=== PATIENT | female | born 2005 | race Caucasian/White ===

== ENCOUNTER 2024-02-05 18:11 | Emergency (ER) | payer OTHER, SELFPAY ==
[2024-02-05 18:14] VITALS: BP 110/71
[2024-02-05] MEDS: TYLENOL 650 MG PO (19:07)
[2024-02-05 19:30] LABS: Urine Albumin Negative (Neg - Trace); Urine Bilirubin Negative (Negative); Urine Character Clear (Clear); Urine Color Straw; Urine Glucose Negative (Negative); Urine Ketone 2+ (Negative); Urine Leukocyte Trace (Negative); Urine Nitrite Negative (Negative); Urine Occult Blood Negative (Negative); Urine Specific Gravity 1.005 (<1.030); Urine Urobilinogen Negative (Neg - 1+)
[2024-02-05 19:32] LABS: % Basophils 0.1 % (0-2); % Immature Granulocytes 0.5 % (0-0.5); % Lymphocytes 5.3 % (20.5-51.1); % Monocytes 6.6 % (1.7-9.3); % Neutrophils 87.5 % (42.2-75.2); Absolute Immature Granulocytes 0.1 10^3/uL (0-0.05); Absolute Lymphocytes 0.6 10^3/uL (1.2-3.4); Absolute Monocytes 0.7 10^3/uL (0.1-0.6); Absolute Neutrophils 9.7 10^3/uL (1.4-6.5); Hemoglobin 12.1 g/dL (12.0-16.0); Mean Corp Hgb Conc. 34.6 g/dL (33.0-37.0); Mean Corpuscular Hgb 31.3 pg (27.0-31.0); Mean Corpuscular Volume 90.7 fL (81.0-99.0); Nucleated Red Blood Cells % 0 %; Platelet Count 207 10^3/uL (130-400); Red Blood Cell Count 3.86 10^6/uL (4.20-5.40); Red Cell Dist. Width 11.5 % (11.5-14.5); White Blood Cell Count 11.1 10^3/uL (4.8-10.8)
[2024-02-05 19:37] LABS: HCG, Serum Qualitative Screen Negative
--- NOTE | 2024-02-05 19:38 | ED.GENMED ---
History of Present Illness
General
Chief Complaint: Fever
Source: patient and family (Mother at bedside)
Exam Limitations: none
Time Seen by Provider: 02/05/24 18:50
Nursing documentation reviewed up to this point in time: agreed with
History of Present Illness
History of Present Illness:
19-year-old female states last night she felt hot and there chest felt a little tight, she woke at 6:30 this a.m. with her eyes and head hurting, at 7:15 she took Advil 400 mg, went to school, had drenching sweats, took Advil 400 at 11:30, went
home, napped until 3:30 when she woke with fever of 102, chills, body aches. Saw GULSHAN Swanson at [facility]. Had a dip U/A that was questionable for infection so sent here for evaluation.
At this time she states her headache is 2/10.
She has no known sick contacts, no recent travel.
Denies cough or chest pain or shortness of breath.
Denies N/V or abdominal pain. Denies flank pain
6 days ago she had frequency and burning of urination, took Azo, will of oregano and Cran-actin and her symptoms resolved after 4 days. Spring well 2 days ago. Then got sick again yesterday.
Past History
Past History
ED Past Medical History: None
ED Past Surgical History: None
Social History
Tobacco: Non-smoker
Alcohol: Occasional
Personal: Single
Living: with family
Employment: Student
Review of Systems
Review of Systems
Allergies reviewed?: Yes
All Other Systems: ROS reviewed and negative except as documented in HPI and ROS
Constitutional: Reports fever, fatigue and chills
EENT: Denies sore throat
Respiratory: Denies cough or trouble breathing
Cardiac: Reports diaphoresis; Denies chest pain
ABD/GI: Denies abdominal pain, nausea, vomiting, diarrhea or constipated
: Reports no symptoms
Musculoskeletal: Reports other (general body aches)
Skin: Reports no symptoms
Neurological: Reports headache; Denies dizzy, weakness or numbness
Phy Exam
Physical Exam
Physical Exam:
GENERAL: No acute distress. A&Ox3.
CONSTITUTIONAL: Afebrile.
EYES: clear, conjunctivae normal
Neck: Supple
ENMT: moist mucus membranes, Pharynx nl
RESPIRATORY: Regular respirations, nonlabored, lungs clear.
CARDIOVASCULAR: Regular rate and rhythm, tachycardic HR 124, no murmurs, no rubs.
GI: Soft, nontender, normal BS
MUSCULOSKELETAL: Moves with ease. Well perfused.
SKIN: Warm, dry, pink
PSYCH: Normal mood and affect. Well kept, interactive and appropriate
NEUROLOGIC: Awake, alert and oriented. No focal neurological deficits
Course
Orders/Labs/Results
Orders:
Orders
02/05/24 18:51
Acetaminophen [Tylenol] 650 mg PO NOW STA
02/05/24 19:07
Test Result ONCE
02/05/24 19:18
COVID-19 Antigen Urgent
Source: Nasal Swab
Complete Blood Count/With Diff Urgent
Comprehensive Metabolic Panel Urgent
HCG, Serum Qualitative Screen Urgent
Urinalysis Reflex To Culture Urgent
Date Specimen was Collected: 02/05/24
Time Specimen was Collected: 18:58
Urine Microscopic Reflex Cult Urgent
Influenza A+B Rapid Molecular Urgent
NELL Source: Nasal Swab
Specimen Description:
Urine Culture Urgent
NELL Source: U
Specimen Description:
Date Specimen was Collected: 02/05/24
Time Specimen was Collected: 18:58
02/05/24 20:35
Nitrofurantoin Monohydrate [Macrobid] 100 mg PO NOW STA
Abnormal Lab Results
02/05/24
19:18
WBC 11.1 H 10^3/uL
(4.8-10.8)
RBC 3.86 L 10^6/uL
(4.20-5.40)
Hct 35.0 L %
(37.0-47.0)
MCH 31.3 H pg
(27.0-31.0)
Abs Immat Gran (auto) 0.1 H 10^3/uL
(0-0.05)
Absolute Neuts (auto) 9.7 H 10^3/uL
(1.4-6.5)
Absolute Lymphs (auto) 0.6 L 10^3/uL
(1.2-3.4)
Absolute Monos (auto) 0.7 H 10^3/uL
(0.1-0.6)
Neutrophils % 87.5 H %
(42.2-75.2)
Lymphocytes % 5.3 L %
(20.5-51.1)
Sodium 132 L mmol/L
(135-145)
Chloride 97 L mmol/L
(98-107)
Carbon Dioxide 21 L mmol/L
(22-30)
Urine Ketones 2+ A
(Negative)
Leukocyte Esterase Rfl Trace A
(Negative)
Urine WBC (Reflex) 21-25 A /HPF
(0-5)
Urine Bacteria (Reflex) Few A
(Negative)
02/05/24 19:18
02/05/24 19:18
Vital Signs
Initial and Last Documented VS:
Initial Vital Signs
Temp Pulse Resp BP Pulse Ox
99.6 F 133 20 110/71 99
02/05/24 18:14 02/05/24 18:14 02/05/24 18:14 02/05/24 18:14 02/05/24 18:14
Last Documented Vital Signs
Temp Pulse Resp BP Pulse Ox
99.6 F 110 18 110/70 98
02/05/24 18:14 02/05/24 20:49 02/05/24 20:49 02/05/24 20:49 02/05/24 20:49
MDM/Problems Addressed
Differential Diagnosis Includes:
Covid, Flu, viral illness, UTI
MDM/Problems Addressed:
19-year-old female states last night she felt hot and there chest felt a little tight, she woke at 6:30 this a.m. with her eyes and head hurting, at 7:15 she took Advil 400 mg, went to school, had drenching sweats, took Advil 400 at 11:30, went
home, napped until 3:30 when she woke with fever of 102, chills, body aches. Saw GULSHAN Swanson at [facility]. Had a dip U/A that was questionable for infection so sent here for evaluation.
At this time she states her headache is 2/10.
She has no known sick contacts, no recent travel.
Denies cough or chest pain or shortness of breath.
Denies N/V or abdominal pain. Denies flank pain
6 days ago she had frequency and burning of urination, took Azo, will of oregano and Cran-actin and her symptoms resolved after 4 days. Spring well 2 days ago. Then got sick again yesterday.
Temp 99.6, NAD
Pt has a drinking container holding 16 oz water. She finished one whole container at the PCP office and is now working on her second full container. No need for IV fluids
7:45 PM
CBC with no clinically significant abnormality CMP:
No clinically significant abnormality
hCG negative
Covid neg
Flu neg
8:30 p.m.
UA: WBC 21-25 Neg Nitrites, Tr Leukocytes
Urine culture pending
Rx for Nitrofurantoin sent to pt pharmacy
Pt much more bright and alert, looks much better
Pt ambulated out with normal gait to care of mother
*Critical Care Note
Total Time (30-74mins, 75-104mins- exclusive of procedures): Not Applicable
ED Attending Note
-
Portions of this chart may have been created with voice recognition software.� Occasional wrong word or��sound alike� substitutions may have occurred due to the inherent limitations of voice recognition software.
Discharge Plan
Departure
Patient Disposition: Home (Routine Discharge)
Date of Disposition: 02/05/24
Time of Disposition: 20:35
Patient with high blood pressure during this ER visit?: No
Condition: Good
Discharge Problem:
UTI (urinary tract infection), Acute febrile illness
Instructions: Fever, Adult (DC), Viral Syndrome (DC), Urinary Tract Infection, Adult ED
Prescriptions:
New
nitrofurantoin monohyd/m-cryst [Macrobid] 100 mg capsule
100 mg PO BID Qty: 14 0RF
Referrals:
Danielle Schreiber PA [Family Provider] - As needed
Activity Restrictions/Additional Instructions:
As we discussed, your urine shows possible early infection I sent a prescription to your pharmacy for Macrobid/nitrofurantoin
Drink plenty of water
You may also have a viral illness causing the headache, aches and fever.
Continue Tylenol and Ibuprofen for fever/aches and pains.
Interventions
Interventions:
*Risk Screen - Suicide Last Done: 02/05/24 18:14
*General Assessment Last Done: 02/05/24 18:14
*Neglect/Abuse Screening Last Done: 02/05/24 18:14
*ED COVID-19 Vaccine History Last Done: 02/05/24 20:48
*Nursing Disposition Last Done: 02/05/24 20:49
ED- Neurological Assessment Last Done: 02/05/24 20:48
ED-Skin Assessment Last Done: 02/05/24 20:48
Discharge Date and Time
Discharge Date/Time: 02/05/24 20:50
Print Language: ARMENIAN
[2024-02-05 19:40] LABS: ALT (SGPT) 16 U/L (0-35); AST (SGOT) 22 U/L (14-36); Albumin 4.3 g/dl (3.5-5.0); Alkaline Phosphatase 59 U/L (38-126); Blood Urea Nitrogen 12 mg/dl (7-17); Calcium 9.3 mg/dl (8.4-10.2); Carbon Dioxide 21 mmol/L (22-30); Chloride 97 mmol/L (98-107); Glucose 95 mg/dl (70-99); Potassium 3.8 mmol/L (3.5-5.1); Sodium 132 mmol/L (135-145); Total Bilirubin 0.7 mg/dl (0.2-1.3); Total Protein 7.1 g/dl (6.3-8.2); eGFR > 60.00
[2024-02-05 19:48] LABS: COVID-19 Antigen Negative (Negative)
[2024-02-05 20:10] LABS: Urine Bacteria Few (Negative); Urine Red Blood Cell 0-2 /HPF (0-2); Urine Squamous Cell >30 /LPF (Few); Urine White Cell 21-25 /HPF (0-5)
[2024-02-05] MEDS: MACROBID 100 MG PO (20:42)
[2024-02-05 20:49] VITALS: BP 110/70
== END 2024-02-05 20:50 | disposition home or self-care (01) ==
LOC: EMR 18:11
PROVIDERS: Registered Nurse; EMERGENCY PHYSICIAN Emergency Medicine; FAMILY PHYSICIAN Physician Assistant Medical
DX: N39.0 Urinary tract infection, site not specified (principal)
CPT/HCPCS: 99283; 80053; 81003; 81015; 84703; 85025; 87086; 87502; 87811